=== PATIENT | female | born 1965 | race Caucasian/White ===

== ENCOUNTER 2024-12-13 16:22 | Emergency (ER) | payer OTHER ==
[~2024-12-13] VITALS: Ht 165.1 cm; Wt 68.0 kg
[2024-12-13 16:25] VITALS: O2SAT 97
[2024-12-13] MEDS ORDERED: MECLIZINE 25MG TABLET PO STA (17:19)
[2024-12-13] MEDS ORDERED: ONDANSETRON HCL 4MG/2ML INJ IV ONE (17:30)
[2024-12-13] MEDS ORDERED: PANTOPRAZOLE SODIUM 40 MG/VIAL IV ONE (17:30)
[2024-12-13] MEDS ORDERED: MORPHINE SULFATE 4 MG/ML INJ (FOR IV/IM USE) IV ONE (17:30)
[2024-12-13 19:00] LABS: HEMATOCRIT. 36.8 % (36.0-48.0); HEMOGLOBIN. 12.1 g/dL (12.0-16.0); MEAN PLATELET VOLUME 10.2 fl (7.4-10.4); PLATELET 182 x1000/uL (130-400); RED BLOOD CELL COUNT 4.00 mill/uL (4.2-5.4); RED CELL DISTRIBUTION WIDTH 13.9 % (11.6-14.6)
[2024-12-13 19:10] LABS: CREATININE 0.9 mg/dL (0.6-1.0); UREA NITROGEN BLOOD 17 mg/dL (9-23)
[2024-12-13 19:11] LABS: ETHANOL BLOOD < 10 mg/dL (<10)
[2024-12-13 19:12] LABS: ASPARTATE AMINOTRANSFERASE 43 IU/L (<34); BILIRUBIN DIRECT < 0.1 mg/dL (<=3.0); TROPONIN I HIGH SENSITIVITY < 4 ng/L (3.0-34)
[2024-12-13 19:13] LABS: BILIRUBIN TOTAL 0.3 mg/dL (0.1-1.0); PROTEIN TOTAL 7.7 g/dL (6.0-8.3)
[2024-12-13] MEDS: SODIUM CHLORIDE 0.9% 1,000 ML IV ONE (19:28)
[2024-12-13 20:04] LABS: INR 1.0
[2024-12-13] MEDS: PANTOPRAZOLE SODIUM 40 MG/VIAL IV SCH (20:33)
[2024-12-13] MEDS: ONDANSETRON HCL 4MG/2ML INJ IV SCH (20:33)
[2024-12-13] MEDS: MORPHINE SULFATE 4 MG/ML INJ (FOR IV/IM USE) IV SCH (20:34)
[2024-12-13] MEDS: MECLIZINE 25MG TABLET PO SCH (20:35)
[2024-12-13 21:50] LABS: LYMPHOCYTES % MANUAL 7.0 % (20.0-60.0); METAMYELOCYTES % 1.0 % (0-0); MONOCYTES % MANUAL 3.0 % (2.0-8.0); NEUTROPHILS % MANUAL 89.0 % (45.0-75.0); PLATELET ESTIMATE NORMAL
[2024-12-13 23:30] VITALS: BP 104/51; PULSE 74; RESP 10; O2SAT 97
== END 2024-12-14 00:25 | disposition short-term general hospital (02) ==
LOC: ER 16:22 → CMPBEDREQ 12-14 16:20
DX: R11.2 Nausea with vomiting, unspecified (principal); R42 Dizziness and giddiness; R06.02 Shortness of breath; Z79.899 Other long term (current) drug therapy; Z98.890 Other specified postprocedural states
CPT/HCPCS: 80076; 80048; 80320; 83880; 83690; 83735; 85025; 85610; 85730; 84484; 36415; 71045; 70450; 74176; 93005; 96361; 96374; 96375; 99285; J8597; J2405; J2470; J2270; J7030; Z7610; A4606; G0480